=== PATIENT | male | born 1995 | race Hispanic/Latino ===

== ENCOUNTER 2017-10-26 13:30 | Outpatient (CLI) | payer BC | END 2017-10-26 13:31 | disposition home or self-care (01) | LOC: BICMRI 13:30 | PROVIDERS: ATTEND Neurological Surgery | DX: M54.5 Low back pain (principal); M43.16 Spondylolisthesis, lumbar region; M99.83 Other biomechanical lesions of lumbar region | CPT/HCPCS: 72110; 72148 ==